=== PATIENT | female | born 1970 | race Caucasian/White ===

== ENCOUNTER 2020-03-04 11:46 | Inpatient (IN) | payer SELFPAY ==
[2020-03-04] VITALS (10 sets, daily range): BP systolic 108–157; BP diastolic 66–95; PULSE 79–98; RESP 18–24; TEMP 37.4–39.2; O2SAT 90–100; BMI 29.2
--- NOTE | 2020-03-04 12:34 | CT_ITS ---
WS: [id number] CT ABDOMEN AND PELVIS WITH CONTRAST HISTORY: abd pain, nausea and vomiting for 4 days. Prior appendectomy. TECHNIQUE: Imaging performed of the abdomen and pelvis with IV contrast. Single phase imaging of the abdomen. Coronal and sagittal reformats are submitted. All CT scans at [facility] use at least one of these dose optimization techniques: automated exposure control; mA and/or kV adjustment per patient size (includes targeted exams where dose is matched to clinical indication); or iterativ e reconstruction. IV CONTRAST: Omnipaque 300; 95 mL IV. Oral contrast: No DLP: 1370.78 mGy.cm COMPARISON: None available. Lower thorax: Lung bases are clear. Mildly enlarged cardiac chambers. No pericardial effusion. No hia henok hernia. Liver/biliary system: Mild hepatomegaly without significant hepatic steatosis. Gallbladder: Normal. No gallstones or wall thickening. No pericholecystic fluid. Pancreas: Normal. Spleen: Normal. Adrenal glands: Negative RIGHT adrenal gland. Enhancing nodule measures 13 mm associated with the LEF T adrenal gland. Right kidney: RIGHT kidney is mildly enlarged with multifocal areas of decreased enhancement and low attenuation. There is abnormal enhancement in the upper pole in the lower pole with adjacent perineph mukul stranding. There is mild dilatation of the renal pelvis with enhancement. No dilatation of the ca lyces. Also noted is a 2.1 cm cyst in the mid kidney. Mild RIGHT periureteral stranding. Left kidney: Small cortical cysts. No obstruction. Aorta: Mild atherosclerosis with no aneurysm. Lymphadenopathy: None. Free fluid: None. GI tract: There is moderate wall thickening in the ascending colon. There is a a stricture involving the ascending colon to the hepatic flexure. Long segment area of diffuse wall thickening and hyperemi a with narrowing of the lumen. There is pericolonic inflammation. Abdominal wall: Unremarkable abdominal wall. No hernia. Pelvis: Midline uterus. No free fluid or adnexal mass. Bones: Grade 1 anterolisthesis of L5 with bilateral L5 pars defects. CT/CT abdomen pelvis w con* [id number] IMPRESSION: 1. Abnormal ascending colon with circumferential wall thickening or pericoloni c stranding. There is significant change in caliber. Differential includes foca l colitis or neoplasm. Colonic changes may be secondary to the RIGHT renal absc esses. Strongly recommend colonoscopy after acute episode resolves. 2. Abnormal enhancement of the RIGHT kidney consistent with multifocal renal n ephritis and developing abscesses. 3. Indeterminate LEFT adrenal mass. Notified Bharat Kiser DO at 03/04/2020 1:37 PM.
[2020-03-04] MEDS: sodium chloride 0.9% 1,000 ML 999 ML IV (12:52)
[2020-03-04] MEDS: ondansetron 2 mg/ML SDV 2 mL 4 MG IVP (12:53)
[2020-03-04] MEDS: morphine 4 mg/mL SDV 1 mL IVP ×2 (12:53→14:21)
[2020-03-04 12:56] LABS: Add Urine Microscopic? YES; Bilirubin Urine Neg (Negative); Blood Urine 2+ (Negative); Glucose Urine UA Norm (Normal); Ketones Urine Negative (Negative); Leukocyte Esterase Urine 2+ (Negative); Nitrate Urine Negative (Negative); Protein Urine Neg (Negative); Specific Gravity, Urine 1.015 (1.005-1.030); Urine Appearance Clear (CLEAR); Urine Color Yellow (Yellow); Urobilinogen Urine 1 mg/dL (Negative); pH Urine 8.5 (5-7)
[2020-03-04 13:01] LABS: Add Urine Culture? Yes; Bacteria Urine 1+ /hpf; RBC Urine 15-25 /hpf (0-2); Squamous Epithelial Cell Urine 0-4 /hpf (0-5); WBC Urine 80-100 /hpf (0-5)
[2020-03-04 13:08] LABS: Basophils % 0.2 %; Eosinophils % 0.1 %; Hematocrit 47.5 % (37.0-47.0); Hemoglobin 15.6 g/dL (11.5-15.3); Lymphocytes # 1.4 10^3/uL (0.8-4.8); Lymphocytes % 10.4 %; Mean Corpuscular HGB Conc 32.8 g/dL (30.0-36.0); Mean Corpuscular Volume 97.5 fL (81-99); Mean Platelet Volume 11.1 fL (7.4-10.4); Monocytes # 1.4 10^3/uL (0.2-0.9); Monocytes % 9.9 %; Neutrophils # 10.86 10^3/uL (1.8-7.7); Nucleated Red Blood Cells % 0 %; Platelet Count 259 10^3/cmm (130-400); Red Blood Count 4.87 10^6/uL (4.1-5.3); Red Cell Distribution Width 12.8 % (12.1-15.1); White Blood Count 13.8 10^3/uL (4.0-10.0)
[2020-03-04 13:10] LABS: HCG, Serum Qual Negative (Negative)
[2020-03-04 13:15] LABS: Alanine Aminotransferase 88 U/L (0-33); Albumin Level 3.8 g/dL (3.5-5.2); Alkaline Phosphatase 111 IU/L (35-105); Anion Gap 17.1 (5-19); Aspartate Amino Transferase 66 U/L (0-32); Blood Urea Nitrogen 10 mg/dL (6-20); Calcium 9.4 mg/dL (8.5-10.5); Carbon Dioxide 22 mmol/L (22-29); Chloride 101 mmol/L (98-107); Globulin 4.2 g/dL (1.3-4.6); Glomerular Filtration Rate 89.7 mL/min (90-130); Glucose 111 mg/dL (65-115); Lipase 9 U/L (13-60); Osmolality Calculated 282 mOsm/kg (285-295); Potassium 4.1 mmol/L (3.5-5.1); Sodium 136 mmol/L (136-145); Total Bilirubin 1.2 mg/dL (0.15-1.2)
--- NOTE | 2020-03-04 13:34 | W.ED.ABDPA2 ---
HPI - Abdominal Pain General: Chief Complaint: Abdominal Pain Stated Complaint: ABDOMEN PAIN Time Seen by Provider: 03/04/20 12:25 History of Present Illness: HPI narrative: 49-year-old female started having abdominal pain 2 days ago has a temp of 102.6. She has had diarrhea as well and some small amount of vaginal bleeding she denies dysuria urgency or frequency no cough or difficulty with breathing. She has had significant no diarrhea is also been very loose stools no hematochezia or melena. MD elicited complaint: flank pain Pertinent past history: myocardial infarction Onset (ago): day(s) (4) Pain Consistency: constant Location: R flank Quality: cramping Radiation: suprapubic Migration to: no migration Exacerbating factors: movement Relieving factors: rest Associated Symptoms: Reports anorexia, bloating, change in bowel habits, change in stool character, GI cramping, diarrhea, dysuria, fever(s) and nausea; Denies belching, chills, coffee ground emesis, constipation, dyspepsia, excessive flatus, heartburn, hematochezia, hematuria, hematemesis, fecal incontinence, loose stools, melena, poor appetite, syncope and vomiting Related Data: Date of Last Menstrual Period: 08/12/19 Review of Systems Const: Reports: fever(s); Denies: chills ENMT: Denies: throat pain, ear or mastoid pain, nasal discharge or nasal congestion Card: Denies: syncope Resp: Denies: dyspnea, productive cough or non-productive cough GI: Reports: nausea, diarrhea, bloating, GI cramping, change in bowel habits and change in stool character; Denies: vomiting, hematemesis, coffee ground emesis, heartburn, constipation, belching, excessive flatus, fecal incontinence, hematochezia or melena : Reports: dysuria; Denies: hematuria Skin/Breast: Denies: rash or pruritus PFSH ED PFSH: Medical History Coronary artery disease Surgical History History of appendectomy 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 Female Reproductive History: Date of last menstrual period: 08/12/19 Physical Exam Const: COMMON NORMALS: no acute distress GENERAL APPEARANCE: cooperative and comfortable ORIENTATION/CONSCIOUSNESS: Yes awake, Yes oriented to person, Yes oriented to place and Yes oriented to time HENMT: COMMON NORMALS: normocephalic, atraumatic, hearing grossly normal bilaterally, external ears normal, EAC's normal, TM's normal bilaterally, Normal nasal mucous membranes and turbinates present, moist oral mucous membranes and oropharynx normal HEAD & SCALP: normocephalic and atraumatic NOSE: Normal nasal mucous membranes and turbinates present EXTERNAL EAR: Yes external ears normal EXTERNAL AUDITORY CANAL: EAC's normal TYMPANIC MEMBRANE: TM's normal bilaterally Eye: COMMON NORMALS: Equal, round and reactive pupils present, EOMs intact bilaterally, conjunctivae normal and no scleral icterus CONJUNCTIVA: Yes conjunctivae normal PUPIL: Yes Equal, round and reactive pupils present Neck/C-Spine: COMMON NORMALS: no JVD Resp: COMMON NORMALS: normal respiratory effort, No retractions, No use of accessory muscles and clear to auscultation bilaterally AUSCULTATION: clear to auscultation bilaterally Cardio: COMMON NORMALS: no JVD, regular rate, regular rhythm and No murmurs present (Cardio) RATE: regular rate RHYTHM: regular rhythm GI: COMMON NORMALS: Soft to palpation and No hepatosplenomegaly present AUSCULTATION: Yes normoactive bowel sounds PALPATION: Yes Soft to palpation, No Tenderness to palpation present (GI), No Guarding due to palpation present (GI) and Yes No hepatosplenomegaly present : BLADDER/KIDNEY EXAM: Yes CVA tenderness Back/Pelvis: GENERAL BACK: Yes CVA tenderness CVA tenderness: right Extremity: COMMON NORMALS: normal to inspection, capillary refill normal, no clubbing, cyanosis or edema, no calf tenderness and no pedal edema Neuro: SENSORIUM/ORIENTATION: Yes oriented to person, Yes oriented to place and Yes oriented to time Skin: COMMON NORMALS: no rashes or lesions noted GENERAL SKIN EXAM: no rashes or lesions noted Course Vital Signs: Vital signs: Vital Signs Temperature 97.7 F 03/08/20 07:45 Pulse Rate 57 L 03/08/20 07:45 Respiratory Rate 18 03/08/20 07:45 Blood Pressure 148/79 03/08/20 07:45 Pulse Oximetry 97 03/08/20 07:45 MDM - Abdominal Pain MDM Narrative: Medical decision making narrative: Patient has pyelonephritis with potential developing renal abscess. Reviewed CT findings with the radiologist. They make note that the colitis changes may be secondary to the right renal abscesses. Discussed with Dr. Chowdhury he did not feel the colon was direct related to the pyelonephritis he will discuss with hospitalist. Patient will need colonoscopy at a later date. Discussed Dr. Pierce will admit started IV antibiotic Lab Data: Labs: Lab Results 03/04/20 03/04/20 03/04/20 Range/Units 12:20 12:41 12:41 WBC 13.8 H (4.0-10.0) 10^3/ uL RBC 4.87 (4.1-5.3) 10^6/u L Hgb 15.6 H (11.5-15.3) g/dL Hct 47.5 H (37.0-47.0) % MCV 97.5 (81-99) fL MCH 32.0 (28.0-34.0) pg MCHC 32.8 (30.0-36.0) g/dL RDW 12.8 (12.1-15.1) % Plt Count 259 (130-400) 10^3/c mm MPV 11.1 H (7.4-10.4) fL Neut % (Auto) 79.0 % Lymph % (Auto) 10.4 % Deuel % (Auto) 9.9 % Eos % (Auto) 0.1 % Baso % (Auto) 0.2 % Neut # (Auto) 10.86 H (1.8-7.7) 10^3/u L Lymph # (Auto) 1.4 (0.8-4.8) 10^3/u L Deuel # (Auto) 1.4 H (0.2-0.9) 10^3/u L Eos # (Auto) 0.0 (0.0-0.8) 10^3/u L Baso # (Auto) 0.0 (0.0-0.1) 10^3/u L Nucleated RBC % (a uto) 0 % Nucleated RBCs # 0.0 /100WBC Sodium 136 (136-145) mmol/L Potassium 4.1 (3.5-5.1) mmol/L Chloride 101 (98-107) mmol/L Carbon Dioxide 22 (22-29) mmol/L Anion Gap 17.1 (5-19) BUN 10 (6-20) mg/dL Creatinine 0.7 (0.5-0.9) mg/dL GFR Calculation 89.7 L (90-130) mL/min Glucose 111 (65-115) mg/dL Calculated Osmolal ity 282 L (285-295) mOsm/k g Calcium 9.4 (8.5-10.5) mg/dL Total Bilirubin 1.2 (0.15-1.2) mg/dL AST 66 H (0-32) U/L ALT 88 H (0-33) U/L Alkaline Phosphata se 111 H (35-105) IU/L Total Protein 8.0 (6.6-8.7) g/dL Albumin 3.8 (3.5-5.2) g/dL Globulin 4.2 (1.3-4.6) g/dL Lipase 9 L (13-60) U/L HCG, Qual (Negative) Urine Color Yellow (Yellow) Urine Appearance Clear (CLEAR) Urine pH 8.5 H (5-7) Ur Specific Gravit y 1.015 (1.005-1.030) Urine Protein Neg (Negative) Urine Glucose (UA) Norm (Normal) Urine Ketones Negative (Negative) Urine Blood 2+ H (Negative) Urine Nitrate Negative (Negative) Urine Bilirubin Neg (Negative) Urine Urobilinogen 1 H (Negative) mg/dL Ur Leukocyte Earline ase 2+ H (Negative) Urine RBC 15-25 H (0-2) /hpf Urine WBC 80-100 H (0-5) /hpf Ur Squamous Epith Cells 0-4 H (0-5) /hpf Amorphous Sediment Not Reportable Urine Bacteria 1+ H (NONE) /hpf 03/04/20 Range/Units 12:41 WBC (4.0-10.0) 10^3/ uL RBC (4.1-5.3) 10^6/u L Hgb (11.5-15.3) g/dL Hct (37.0-47.0) % MCV (81-99) fL MCH (28.0-34.0) pg MCHC (30.0-36.0) g/dL RDW (12.1-15.1) % Plt Count (130-400) 10^3/c mm MPV (7.4-10.4) fL Neut % (Auto) % Lymph % (Auto) % Deuel % (Auto) % Eos % (Auto) % Baso % (Auto) % Neut # (Auto) (1.8-7.7) 10^3/u L Lymph # (Auto) (0.8-4.8) 10^3/u L Deuel # (Auto) (0.2-0.9) 10^3/u L Eos # (Auto) (0.0-0.8) 10^3/u L Baso # (Auto) (0.0-0.1) 10^3/u L Nucleated RBC % (a uto) % Nucleated RBCs # /100WBC Sodium (136-145) mmol/L Potassium (3.5-5.1) mmol/L Chloride (98-107) mmol/L Carbon Dioxide (22-29) mmol/L Anion Gap (5-19) BUN (6-20) mg/dL Creatinine (0.5-0.9) mg/dL GFR Calculation (90-130) mL/min Glucose (65-115) mg/dL Calculated Osmolal ity (285-295) mOsm/k g Calcium (8.5-10.5) mg/dL Total Bilirubin (0.15-1.2) mg/dL AST (0-32) U/L ALT (0-33) U/L Alkaline Phosphata se (35-105) IU/L Total Protein (6.6-8.7) g/dL Albumin (3.5-5.2) g/dL Globulin (1.3-4.6) g/dL Lipase (13-60) U/L HCG, Qual Negative (Negative) Urine Color (Yellow) Urine Appearance (CLEAR) Urine pH (5-7) Ur Specific Gravit y (1.005-1.030) Urine Protein (Negative) Urine Glucose (UA) (Normal) Urine Ketones (Negative) Urine Blood (Negative) Urine Nitrate (Negative) Urine Bilirubin (Negative) Urine Urobilinogen (Negative) mg/dL Ur Leukocyte Earline ase (Negative) Urine RBC (0-2) /hpf Urine WBC (0-5) /hpf Ur Squamous Epith Cells (0-5) /hpf Amorphous Sediment Urine Bacteria (NONE) /hpf Discharge Plan Discharge Patient Disposition: Admitted As Inpatient Admit Provider: Issa Galaviz Clinical Impression: Pyelonephritis of right kidney, Adrenal mass, Colitis, Sepsis Condition: Stable Discharge Date/Time: 03/04/20 15:40 Coding Level of Care Code ED Light Equipment Operator for Chg Fwd Exam Comprehensive
[2020-03-04] MEDS: cefTRIAXone 2,000 MG in sodium chloride 0.9% (plus) 50 ML 100 MG IV (14:22)
[2020-03-04] MEDS: D5-NS 0.45% + KCL 20 mEq 20 MEQ/1,000 ML BAG 100 MEQ IV (16:16)
--- NOTE | 2020-03-04 18:16 | PM.HP ---
Providers/Chief Complaint Admitting Physician: Issa Galaviz Primary Care Provider: Dung Aldana DO Chief Complaint: ABDOMEN PAIN History of Present Illness Samantha Austin is a 49 year old female with past medical history of coronary artery disease and stent placement about a year ago who is presenting to emergency room with complaints of right flank pain with radiation to her suprapubic area. The symptoms started several days ago. Initially not so severe but progressively got worse. Today it is described as very severe. The pain is acute constant. Denies any modifying factors. Reports dysuria and urinary frequency. The urine is cloudy. Denies hematuria. Reports loose stools but no diarrhea. Denies rectal blood. The patient denies nausea or vomiting. Reports fever and chills. The patient reports that she does not take any medications for her coronary artery disease because she cannot afford them. She does not have medical insurance. She does not have a primary care physician. However she denies any chest pain, palpitations, shortness of breath, dizziness or lightheadedness, peripheral swelling. The patient also reports hypertension and dyslipidemia. Again she does not take any medications for this problems. The patient is active smoker. She also smokes marijuana. Denies alcohol and other recreational drugs. Review of Systems General: Reports: 10 or more systems reviewed and unremarkable except in HPI and below Medications/Allergies Home Medications Medication Instructions Recorded Confirmed Last Taken Type Aleve 1 - 2 tab PO Q6H PRN 03/04/20 03/04/20 Unknown History acetaminophen [Tylenol] 325 mg PO QID PRN 03/04/20 03/04/20 03/04/20 History Allergies Allergy/AdvReac Type Severity Reaction Status Date / Time Latex, Natural Rubber Allergy ALGY-Bliste Verified 03/04/20 15:56 r PFSH Acute PFSH: Medical History (Updated 03/04/20 @ 13:50 by Bharat Kiser DO) Coronary artery disease Surgical History (Updated 03/04/20 @ 13:50 by Bharat Kiser DO) History of appendectomy 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 Moderate to severe distress secondary to the pain. Responses are adequate. Skin is warm and dry. Moist extremities. Neck supple. No JVD Lungs clear bilaterally. Heart S1, S2, regular Abdomen is soft, obese, tender in the right flank and suprapubic area. No rebound. Bowel sounds are present. No guarding. Extremities no edema cyanosis or calf tenderness bilaterally Neuro examination is nonfocal. Normal speech. Eyes Kaitlin. Extraocular muscles are intact. Data : 03/04/20 12:41 03/04/20 12:41 Micro: Microbiology 03/04/20 14:05 Blood Culture - Preliminary Blood SPECIMEN COLLECTED 03/04/20 14:00 Blood Culture - Preliminary Blood SPECIMEN COLLECTED A&P Additional A&P Information 49-year-old female with past medical history of coronary artery disease/stent about a year ago who is presenting with right flank pain, fever and chills. Sepsis secondary to urinary tract infection. Vital signs are currently stable. Right-sided pyelonephritis and kidney abscess. Dr. Tariq, ED physician discussed the findings of CT with Dr. Chowdhury, our urologist. They reviewed the pictures together. For now management with antibiotics and fluids is recommended according to Dr. Tariq. Dr. Chowdhury also felt that there is no direct connection between findings in the kidney and colon. He recommended separate evaluation of colon thickening. We will continue IV fluids, Zosyn, pain medications. Will monitor CBC and chemistry panel. Will wait for the urine and blood culture results. Colon wall thickening. Differential includes inflammation, infection, possible GI tumor. We will closely monitor patient's symptoms. Will consider stool testing if develops diarrhea. The patient will require colonoscopy after stabilization and treatment of her current infection for diagnostic reasons. This was discussed in length with the patient. She verbalized understanding and agreement. Left adrenal mass. This is accidentally found on the CT. The patient is informed. Will require outpatient follow-up and additional testing for long-term monitoring. She verbalized understanding and agreement. Elevated LFTs. I suspect this is secondary to sepsis. Will monitor. DVT prophylaxis. Will order Lovenox. History of coronary artery disease. We will start her on aspirin. Will monitor vital signs. Will consider beta-heriberto. Not ordering statin due to elevated LFTs. The patient was counseled about tobacco abuse. She agrees to quit smoking. Will require outpatient follow-up with PCP and a claims representative. The patient wants to be full code. Attestations Medical Necessity Statement*: The plan of care requires IV medications and fluids. I expect that the patient will spend more than 2 midnights in the hospital. Coding Level of Care Code Acute Java Integration Developer for Mikaela Fisher
[2020-03-04] MEDS: HYDROcodone-acetaminophen 5-325 mg Tablet 1 TAB PO (18:36)
[2020-03-04] MEDS: enoxaparin 40 mg/0.4 mL Syringe SUBCUT (18:37)
[2020-03-04] MEDS: piperacillin-tazobactam 3.375 GM in sodium chloride 0.9% (plus) 50 ML IV (18:38)
[2020-03-04] MEDS: lactated ringers 1,000 ML 125 ML IV (18:43)
--- NOTE | 2020-03-04 19:29 | PM.CONSULT ---
Providers/Reason For Consult Consulting Physican/Specialty*: Urology/Chowdhury Reason for Consult*: Right pyelonephritis Attending Physician: Issa Galaviz Primary Care Provider: Dung Aldana DO History of Present Illness History of Present Illness Samantha Austin is a 49 year old female who I evaluated for the first time tonight at the request of the ER and hospitalist service. Admitted through the emergency department for complaints of 2 days of symptoms suspicious for PYELONEPHRITIS including right flank pain, fever up to 102+. She also had some diarrhea but no significant lower urinary tract symptoms. Does have a history of stones but no stone passage recently gross hematuria or clear-cut renal colicky symptoms. Denies a history of frequent urinary tract infections. Work-up: CT scan showing evidence of right pyelonephritis decreased medullary perfusion possible early abscess. No evidence of perirenal abscess. No evidence of hydronephrosis or obstruction There is also some changes in the right colon suspicious for GI source. Etiology unclear. Further work-up recommendation White count was elevated at 13.8 hemoglobin was 15.6 creatinine was 0.7. Urinalysis 80-100 white cells, 15-25 RBCs, nitrite negative, 1+ bacteria Recommendations: I do not think she needs any surgical intervention at this time. Would recommend full course of antibiotics with culture adjustments as needed. Agree that the right colon appears to be grossly abnormal and needs further evaluation. Review of Systems Const: Reports: fever(s), chills and body aches Eyes: Denies: change in vision Card: Denies: chest pain or palpitations Resp: Denies: dyspnea or productive cough GI: Reports: abdominal pain : Reports: flank pain Musc: Reports: back pain Skin/Breast: Denies: rash or pruritus Neuro: Denies: confusion, Slurred speech present or seizure-like activity Psych: Reports: anxiety Endo: Denies: polydipsia Jg/Lymph: Denies: easy bruising All/Imm: Denies: urticaria Meds/Allergies Home Medications and Allergies Home Medications Medication Instructions Recorded Confirmed Last Taken Type Aleve 1 - 2 tab PO Q6H PRN 03/04/20 03/04/20 Unknown History acetaminophen [Tylenol] 325 mg PO QID PRN 03/04/20 03/04/20 03/04/20 History Allergies Allergy/AdvReac Type Severity Reaction Status Date / Time Latex, Natural Rubber Allergy ALGCandace-Jamese Verified 03/04/20 15:56 r Current Medications Current Medications Generic Name Dose Route Start Last Admin Trade Name Freq PRN Reason Stop Dose Admin Hydrocodone Bitart/Acetaminophen 1 tab 03/04/20 18:09 03/04/20 18:36 Jasper 5-325 Mg PO 1 tab Q4H PRN Administration MODERATE TO SEVERE PAIN Enoxaparin Sodium 40 mg 03/04/20 19:00 03/04/20 18:37 Lovenox SUBCUT 40 mg Q24H ANDREW Administration Lactated Ringer's 1,000 mls @ 125 mls/hr 03/04/20 18:15 03/04/20 18:43 Lactated Ringers IV 125 mls/hr .Q8H ANDREW Administration Piperacillin Sod/Tazobactam 50 mls @ 12.5 mls/hr 03/04/20 19:00 03/04/20 18:38 Sod 3.375 gm/ Sodium Chloride IV 12.5 mls/hr Q8H ANDREW Administration Protocol PFSH Acute PFSH: Medical History Coronary artery disease Surgical History History of appendectomy 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 Female Reproductive History: Date of last menstrual period: 08/12/19 Vitals/I&O/Wt Last Vital Signs Temp 99.4 F 03/04/20 16:00 Pulse 89 03/04/20 16:00 Resp 20 H 03/04/20 16:00 BP 116/70 03/04/20 16:00 Pulse Ox 96 03/04/20 16:00 03/04/20 03/04/20 03/04/20 06:59 14:59 22:59 Intake Total 1050 / 1050 Output Total 200 / 200 Balance 850 / 850 Weight last 48 hrs Weight 170 lb Physical Exam Const: COMMON NORMALS: no acute distress, alert and well nourished GENERAL APPEARANCE: well kempt and well developed ORIENTATION/CONSCIOUSNESS: not confused HENMT: COMMON NORMALS: normocephalic and atraumatic HEAD & SCALP: normocephalic and atraumatic Eye: COMMON NORMALS: conjunctivae normal and no scleral icterus CONJUNCTIVA: Yes conjunctivae normal Neck/C-Spine: COMMON NORMALS: full ROM Resp: COMMON NORMALS: normal respiratory effort EFFORT & INSPECTION: No labored and No Actively coughing Neuro: SENSORIUM/ORIENTATION: Yes alert Psych: COMMON NORMALS: mental status grossly normal APPEARANCE: Yes grossly normal and Yes well kempt ATTITUDE: Yes calm and Yes engaged Skin: COMMON NORMALS: no rashes or lesions noted GENERAL SKIN EXAM: no rashes or lesions noted Data Micro: Micro: Microbiology 03/04/20 14:05 Blood Culture - Pr eliminary Blood SPECIMEN [facility] 03/04/20 14:00 Blood Culture - Pr eliminary Blood SPECIMEN [facility] A&P Assessment and plan (1) Pyelonephritis of right kidney: Possibly some early abscess formation but no clear consolidation. No evidence of hydronephrosis or stones. No reason for surgical intervention at this point. Would recommend antibiotic therapy alone at this point. Does also have a simple cyst in her kidney but they do not appear to be infected. Status: Acute (2) Diarrhea: Status: Acute Qualifiers: Diarrhea type: unspecified type Qualified Code(s): R19.7 - Diarrhea, unspecified Coding Level of Care Code Acute Purchasing Administrator for [facility] Diagnoses Pyelonephritis of right kidney N12 Diarrhea R19.7 Diarrhea type: unspecified type
[2020-03-05] VITALS (10 sets, daily range): BP systolic 118–192; BP diastolic 69–82; PULSE 72–81; RESP 18–20; TEMP 36.8–37.2; O2SAT 92–100
[2020-03-05] MEDS: morphine 4 mg/mL SDV 1 mL 2 MG IVP ×2 (00:53→18:29)
[2020-03-05] MEDS: piperacillin-tazobactam 3.375 GM in sodium chloride 0.9% (plus) 50 ML IV ×3 (02:12→18:26)
[2020-03-05 04:29] LABS: Basophils # 0.1 10^3/uL (0.0-0.1); Basophils % 0.5 %; Eosinophils # 0.1 10^3/uL (0.0-0.8); Hematocrit 41.1 % (37.0-47.0); Hemoglobin 13.4 g/dL (11.5-15.3); Lymphocytes # 2.1 10^3/uL (0.8-4.8); Lymphocytes % 19.3 %; Mean Corpuscular HGB Conc 32.6 g/dL (30.0-36.0); Mean Corpuscular Hemoglobin 32.3 pg (28.0-34.0); Mean Platelet Volume 11.1 fL (7.4-10.4); Monocytes # 1.5 10^3/uL (0.2-0.9); Monocytes % 13.8 %; Neutrophils # 6.93 10^3/uL (1.8-7.7); Neutrophils % 65.2 %; Nucleated Red Blood Cells % 0 %; Platelet Count 225 10^3/cmm (130-400); Red Blood Count 4.15 10^6/uL (4.1-5.3); Red Cell Distribution Width 12.9 % (12.1-15.1); White Blood Count 10.6 10^3/uL (4.0-10.0)
[2020-03-05 04:54] LABS: Chloride 102 mmol/L (98-107); Potassium 3.9 mmol/L (3.5-5.1)
[2020-03-05 05:22] LABS: Alanine Aminotransferase 66 U/L (0-33); Aspartate Amino Transferase 46 U/L (0-32); Blood Urea Nitrogen 10 mg/dL (6-20); Calcium 8.2 mg/dL (8.5-10.5); Carbon Dioxide 23 mmol/L (22-29); Glomerular Filtration Rate 89.7 mL/min (90-130); Glucose 104 mg/dL (65-115); Total Bilirubin 0.9 mg/dL (0.15-1.2); Total Protein 6.8 g/dL (6.6-8.7)
[2020-03-05 05:28] LABS: Albumin Level 3.1 g/dL (3.5-5.2); Alkaline Phosphatase 137 IU/L (35-105); Anion Gap 12.9 (5-19); Globulin 3.7 g/dL (1.3-4.6); Osmolality Calculated 277 mOsm/kg (285-295); Sodium 134 mmol/L (136-145)
[2020-03-05] MEDS: acetaminophen 325 mg Tablet 650 MG PO ×2 (09:06→15:16)
[2020-03-05] MEDS: sodium chlor 0.9% + KCl 20 mEq 20 MEQ/1,000 ML BAG 75 MEQ IV ×2 (09:07→22:49)
[2020-03-05] MEDS: aspirin 81 mg EC Tablet PO (09:07)
--- NOTE | 2020-03-05 13:06 | PM.PN ---
Subjective Subjective: Interval history: the patient reports feeling better today. Denies uncontrolled pain. Denies nausea or vomiting. No fevers or chills. No chest pain, shortness of breath, cough, palpitations. No diarrhea. Medications: Reviewed: Yes Medication Review Details: Generic Name Dose Route Start Last Admin Trade Name Freq PRN Reason Stop Dose Admin Acetaminophen 650 mg 03/04/20 18:09 03/05/20 09:06 Tylenol PO 650 mg Q6H PRN Administration Mild/Mod Pain Or Temp >/= 101 Hydrocodone Bitart /Acetaminophen 1 tab 03/04/20 18:09 03/04/20 18:36 [place] 5-325 Mg PO 1 tab Q4H PRN Administration MODERATE TO SEVER E PAIN Aspirin 81 mg 03/05/20 09:00 03/05/20 09:07 Aspirin Ec PO 81 mg DAILY ANDREW Administration Enoxaparin Sodium 40 mg 03/04/20 19:00 03/04/20 18:37 Lovenox SUBCUT 40 mg Q24H ANDREW Administration Piperacillin Sod/T azobactam 50 mls @ 12.5 mls /hr 03/04/20 19:00 03/05/20 11:13 Sod 3.375 gm/ So dium Chloride IV 12.5 mls/hr Q8H ANDREW Administration Protocol Potassium Chloride /Sodium Chloride 20 meq in 1,000 m ls @ 75 mls/hr 03/05/20 08:00 03/05/20 09:07 Sodium Chlor 0.9 % + Kcl 20 Meq IV 75 mls/hr .[id number] ANDRWE Administration Morphine Sulfate 2 mg 03/04/20 18:09 03/05/20 00:53 Morphine IVP 2 mg Q4H PRN Administration SEVERE PAIN Vitals/I&O/Wt Last Vital Signs Temp 98.6 F 03/05/20 11:16 Pulse 73 03/05/20 11:16 Resp 18 03/05/20 11:16 BP 126/72 03/05/20 11:16 Pulse Ox 100 03/05/20 11:16 03/04/20 03/05/20 03/05/20 22:59 06:59 14:59 Intake Total 1100 / 1100 300 / 1400 480 / 480 Output Total 200 / 200 Balance 900 / 900 300 / 1200 480 / 480 Weight last 48 hrs Weight 77.111 kg Physical Exam Narrative: EXAM NARRATIVE: The patient is awake alert and oriented. no acute distress. Responses are adequate. Skin is warm and dry. Moist extremities. Neck supple. No JVD Lungs clear bilaterally. Heart S1, S2, regular Abdomen is soft, obese, tender in the right flank and suprapubic area. No rebound. Bowel sounds are present. No guarding. Extremities no edema cyanosis or calf tenderness bilaterally Neuro examination is nonfocal. Normal speech. Eyes Kaitlin. Extraocular muscles are intact. Data : 03/05/20 04:00 03/05/20 04:00 Micro: Microbiology 03/04/20 12:20 Urine Culture - Preliminary Urine,Clean Catch Gram Negative Rods 03/04/20 14:05 Blood Culture - Preliminary Blood SPECIMEN COLLECTED 03/04/20 14:00 Blood Culture - Preliminary Blood SPECIMEN COLLECTED A&P Assessment and plan (1) Pyelonephritis of right kidney: Status: Acute (2) Diarrhea: Status: Acute Qualifiers: Diarrhea type: unspecified type Qualified Code(s): R19.7 - Diarrhea, unspecified (3) Colon wall thickening: Status: Acute (4) Adrenal mass: Status: Acute Additional A&P Information 49-year-old female with past medical history of coronary artery disease/stent about a year ago who is presenting with right flank pain, fever and chills. Sepsis secondary to urinary tract infection. resolved. Continue monitoring. Right-sided pyelonephritis and kidney abscess. appreciate Dr. Chowdhury's input. Continuing antibiotics. Her symptoms are improving. Colon wall thickening. Differential includes inflammation, infection, possible GI tumor. We will closely monitor patient's symptoms. Will consider stool testing if develops diarrhea. The patient will require colonoscopy after stabilization and treatment of her current infection for diagnostic reasons. This was discussed in length with the patient. She verbalized understanding and agreement. Left adrenal mass. This is accidentally found on the CT. The patient is informed. Will require outpatient follow-up and additional testing for long-term monitoring. She verbalized understanding and agreement. Elevated LFTs. I suspect this is secondary to sepsis. Will monitor. DVT prophylaxis. Will order Lovenox. History of coronary artery disease. aspirin. Not ordering statin due to elevated LFTs. The patient was counseled about tobacco abuse. She agrees to quit smoking. Will require outpatient follow-up with PCP and a court administrator. full code. The plan of care was discussed with the patient. She verbalized consent and agreement. Attestations Medical Necessity Statement*: please see assessment and plan. The patient requires IV antibiotics. Coding Level of Care Code Acute Steam Blocker for [facility] Diagnoses Pyelonephritis of right kidney N12 Diarrhea R19.7 Diarrhea type: unspecified type Colon wall thickening K63.9 Adrenal mass E27.8
[2020-03-05] MEDS: enoxaparin 40 mg/0.4 mL Syringe SUBCUT (18:26)
[2020-03-05] MEDS: HYDROcodone-acetaminophen 5-325 mg Tablet 1 TAB PO (20:38)
[2020-03-05] MEDS: nicotine 21 mg Patch 1 PATCH TRANSDERMA (20:38)
[2020-03-06] VITALS (7 sets, daily range): BP systolic 112–143; BP diastolic 74–87; PULSE 71–84; RESP 16–22; TEMP 36.6–37.6; O2SAT 94–98
[2020-03-06] MEDS: morphine 4 mg/mL SDV 1 mL 2 MG IVP (01:17)
[2020-03-06] MEDS: piperacillin-tazobactam 3.375 GM in sodium chloride 0.9% (plus) 50 ML IV ×3 (03:46→18:16)
[2020-03-06] MEDS: HYDROcodone-acetaminophen 5-325 mg Tablet 1 TAB PO ×2 (04:19→21:36)
[2020-03-06] MEDS: ondansetron 2 mg/ML SDV 2 mL 4 MG IVP (04:24)
[2020-03-06 05:38] LABS: Basophils % 0.4 %; Eosinophils # 0.2 10^3/uL (0.0-0.8); Eosinophils % 2.4 %; Hematocrit 39.1 % (37.0-47.0); Hemoglobin 12.6 g/dL (11.5-15.3); Lymphocytes # 1.7 10^3/uL (0.8-4.8); Lymphocytes % 20.8 %; Mean Corpuscular HGB Conc 32.2 g/dL (30.0-36.0); Mean Corpuscular Hemoglobin 31.8 pg (28.0-34.0); Mean Corpuscular Volume 98.7 fL (81-99); Mean Platelet Volume 11.8 fL (7.4-10.4); Monocytes # 1.1 10^3/uL (0.2-0.9); Monocytes % 13.5 %; Neutrophils # 5.18 10^3/uL (1.8-7.7); Neutrophils % 62.5 %; Nucleated Red Blood Cells % 0 %; Platelet Count 256 10^3/cmm (130-400); Red Blood Count 3.96 10^6/uL (4.1-5.3); Red Cell Distribution Width 12.6 % (12.1-15.1); White Blood Count 8.3 10^3/uL (4.0-10.0)
[2020-03-06 05:59] LABS: Magnesium 1.9 mg/dL (1.7-2.3)
[2020-03-06 06:06] LABS: Albumin Level 3.1 g/dL (3.5-5.2); Anion Gap 16.5 (5-19); Blood Urea Nitrogen 9 mg/dL (6-20); Calcium 8.2 mg/dL (8.5-10.5); Carbon Dioxide 21 mmol/L (22-29); Chloride 106 mmol/L (98-107); Glomerular Filtration Rate 132.2 mL/min (90-130); Glucose 103 mg/dL (65-115); Phosphorus 3.2 mg/dL (2.5-4.5); Potassium 4.5 mmol/L (3.5-5.1); Sodium 139 mmol/L (136-145)
[2020-03-06] MEDS: aspirin 81 mg EC Tablet PO (08:35)
[2020-03-06] MEDS: nicotine 21 mg Patch 1 PATCH TRANSDERMA (08:35)
--- NOTE | 2020-03-06 11:19 | PM.PN ---
Subjective Subjective: Interval history: Reports fever last night. No chills. Denies uncontrolled pain. Denies nausea or vomiting. No fevers or chills. No chest pain, shortness of breath, cough, palpitations. No diarrhea. Medications: Medication Review Details: Generic Name Dose Route Start Last Admin Trade Name Freq PRN Reason Stop Dose Admin Acetaminophen 650 mg 03/04/20 18:09 03/05/20 15:16 Tylenol PO 650 mg Q6H PRN Administration Mild/Mod Pain Or Temp >/= 101 Hydrocodone Bitart /Acetaminophen 1 tab 03/04/20 18:09 03/06/20 04:19 [place] 5-325 Mg PO 1 tab Q4H PRN Administration MODERATE TO SEVER E PAIN Aspirin 81 mg 03/05/20 09:00 03/06/20 08:35 Aspirin Ec PO 81 mg DAILY ANDREW Administration Enoxaparin Sodium 40 mg 03/04/20 19:00 03/05/20 18:26 Lovenox SUBCUT 40 mg Q24H ANDREW Administration Piperacillin Sod/T azobactam 50 mls @ 12.5 mls /hr 03/04/20 19:00 03/06/20 11:04 Sod 3.375 gm/ So dium Chloride IV 12.5 mls/hr Q8H ANDREW Administration Protocol Morphine Sulfate 2 mg 03/04/20 18:09 03/06/20 01:17 Morphine IVP 2 mg Q4H PRN Administration SEVERE PAIN Nicotine 1 patch 03/05/20 21:00 03/06/20 08:35 Nicoderm 21 Mg P atch TRANSDERMA 1 patch DAILY ANDREW Administration Ondansetron HCl 4 mg 03/04/20 15:43 03/06/20 04:24 Zofran IVP 4 mg Q6H PRN Administration NAUSEA AND VOMITI NG Vitals/I&O/Wt Last Vital Signs Temp 97.8 F 03/06/20 07:45 Pulse 73 03/06/20 07:45 Resp 16 03/06/20 07:45 BP 134/87 03/06/20 07:45 Pulse Ox 97 03/06/20 07:45 03/05/20 03/06/20 03/06/20 22:59 06:59 14:59 Intake Total 1340 / 2060 410 / 410 Balance 1340 / 1910 410 / 410 Weight last 48 hrs Weight 77.111 kg Physical Exam Narrative: EXAM NARRATIVE: The patient is awake alert and oriented. no acute distress. Responses are adequate. Skin is warm and dry. Moist extremities. Neck supple. No JVD Lungs clear bilaterally. Heart S1, S2, regular Abdomen is soft, obese, tender in the right flank and suprapubic area. No rebound. Bowel sounds are present. No guarding. Extremities no edema cyanosis or calf tenderness bilaterally Neuro examination is nonfocal. Normal speech. Eyes Kaitlin. Extraocular muscles are intact. Data : 03/06/20 04:20 03/06/20 04:20 Micro: Microbiology 03/04/20 12:20 Urine Culture - Final Urine,Clean Catch Escherichia coli 03/04/20 14:05 Blood Culture - Preliminary Blood NEGATIVE TO DATE 03/04/20 14:00 Blood Culture - Preliminary Blood NEGATIVE TO DATE A&P Assessment and plan (1) Pyelonephritis of right kidney: Status: Acute (2) Diarrhea: Status: Acute Qualifiers: Diarrhea type: unspecified type Qualified Code(s): R19.7 - Diarrhea, unspecified (3) Colon wall thickening: Status: Acute (4) Adrenal mass: Status: Acute Additional A&P Information 49-year-old female with past medical history of coronary artery disease/stent about a year ago who is presenting with right flank pain, fever and chills. Sepsis secondary to urinary tract infection. resolved. Continue monitoring. Right-sided pyelonephritis and kidney abscess. appreciate Dr. Chowdhury's input. Continuing antibiotics. Her symptoms are improving. Leukocytosis is improving. However I am still concerned about her fever. She had one spike last night. Colon wall thickening. Differential includes inflammation, infection, possible GI tumor. We will closely monitor patient's symptoms. Will consider stool testing if develops diarrhea. The patient will require colonoscopy after stabilization and treatment of her current infection for diagnostic reasons. This was discussed in length with the patient. She verbalized understanding and agreement. Left adrenal mass. This is accidentally found on the CT. The patient is informed. Will require outpatient follow-up and additional testing for long-term monitoring. She verbalized understanding and agreement. Elevated LFTs. I suspect this is secondary to sepsis. Will monitor. DVT prophylaxis. Will order Lovenox. History of coronary artery disease. aspirin. Not ordering statin due to elevated LFTs. The patient was counseled about tobacco abuse. She agrees to quit smoking. Will require outpatient follow-up with PCP and a cabinetmaker supervisor. full code. The plan of care was discussed with the patient. She verbalized consent and agreement. Attestations Medical Necessity Statement*: Still requires IV antibiotics. Waiting for the culture results. Coding Level of Care Code Acute Dinkey Engineer for [facility] Fwd Diagnoses Pyelonephritis of right kidney N12 Diarrhea R19.7 Diarrhea type: unspecified type Colon wall thickening K63.9 Adrenal mass E27.8
--- NOTE | 2020-03-06 15:47 | P.PN_ITS ---
Subjective Subjective: Interval history: Urology follow-up Overall feels better today but still had a rough day yesterday and increased pain with low-grade fever last night. Has been afebrile ever since. Some nausea off and on. No evidence of septic concerns. Decreased appetite. Reviewed with her expectation of fairly slow turnaround on kidney infection. With white count decreased today Vitals/I&O/Wt Last Vital Signs Temp 98.1 F 03/06/20 15:44 Pulse 79 03/06/20 11:50 Resp 22 H 03/06/20 15:44 BP 130/74 03/06/20 15:44 Pulse Ox 96 03/06/20 15:44 03/06/20 03/06/20 03/06/20 06:59 14:59 22:59 Intake Total 650 / 650 Balance 650 / 650 Physical Exam Const: COMMON NORMALS: no acute distress, alert and well nourished GENERAL APPEARANCE: well kempt and well developed ORIENTATION/CONSCIOUSNESS: not confused HENMT: COMMON NORMALS: normocephalic HEAD & SCALP: normocephalic Resp: COMMON NORMALS: normal respiratory effort EFFORT & INSPECTION: No labored and No Actively coughing Neuro: SENSORIUM/ORIENTATION: Yes alert Psych: COMMON NORMALS: mental status grossly normal APPEARANCE: Yes grossly normal and Yes well kempt ATTITUDE: Yes calm and Yes engaged Skin: COMMON NORMALS: no rashes or lesions noted and no jaundice GENERAL SKIN EXAM: no rashes or lesions noted Data : 03/06/20 04:20 03/06/20 04:20 Micro: Microbiology 03/04/20 12:20 Urine Culture - Final Urine,Clean Catch Escherichia coli 03/04/20 14:05 Blood Culture - Preliminary Blood NEGATIVE TO DATE 03/04/20 14:00 Blood Culture - Preliminary Blood NEGATIVE TO DATE A&P Assessment and plan (1) Pyelonephritis of right kidney: Status: Acute Attestations Medical Necessity Statement*: See attending Coding Level of Care Code Acute Animal Control Officer for [facility] Diagnoses Pyelonephritis of right kidney N12
[2020-03-06] MEDS: enoxaparin 40 mg/0.4 mL Syringe SUBCUT (18:16)
--- NOTE | 2020-03-06 19:07 | PC.NURSE ---
Patient stated my right side hurts where kidneys are located. Patient's pain level 5 on numeric scale 0 - 10. Patient's nurse, Tootie been notified.
[2020-03-07] MEDS: piperacillin-tazobactam 3.375 GM in sodium chloride 0.9% (plus) 50 ML IV (03:10)
[2020-03-07 04:00] VITALS: BP 117/75; PULSE 74; RESP 20; TEMP 37.2; O2SAT 96
[2020-03-07 05:08] LABS: Basophils # 0.1 10^3/uL (0.0-0.1); Basophils % 0.7 %; Eosinophils # 0.2 10^3/uL (0.0-0.8); Hematocrit 42.7 % (37.0-47.0); Hemoglobin 13.9 g/dL (11.5-15.3); Lymphocytes # 2.7 10^3/uL (0.8-4.8); Lymphocytes % 38.5 %; Mean Corpuscular HGB Conc 32.6 g/dL (30.0-36.0); Mean Corpuscular Hemoglobin 31.8 pg (28.0-34.0); Mean Corpuscular Volume 97.7 fL (81-99); Mean Platelet Volume 10.8 fL (7.4-10.4); Monocytes # 0.7 10^3/uL (0.2-0.9); Monocytes % 10.2 %; Neutrophils # 3.34 10^3/uL (1.8-7.7); Neutrophils % 47.3 %; Nucleated Red Blood Cells % 0 %; Platelet Count 322 10^3/cmm (130-400); Red Blood Count 4.37 10^6/uL (4.1-5.3); Red Cell Distribution Width 12.6 % (12.1-15.1); White Blood Count 7.1 10^3/uL (4.0-10.0)
[2020-03-07 05:43] LABS: Alanine Aminotransferase 44 U/L (0-33); Albumin Level 3.2 g/dL (3.5-5.2); Alkaline Phosphatase 206 IU/L (35-105); Anion Gap 13.2 (5-19); Aspartate Amino Transferase 32 U/L (0-32); Blood Urea Nitrogen 9 mg/dL (6-20); Calcium 9.6 mg/dL (8.5-10.5); Carbon Dioxide 25 mmol/L (22-29); Chloride 104 mmol/L (98-107); Globulin 3.7 g/dL (1.3-4.6); Glomerular Filtration Rate 89.7 mL/min (90-130); Glucose 102 mg/dL (65-115); Magnesium 2.3 mg/dL (1.7-2.3); Osmolality Calculated 285 mOsm/kg (285-295); Potassium 4.2 mmol/L (3.5-5.1); Sodium 138 mmol/L (136-145); Total Bilirubin 0.5 mg/dL (0.15-1.2); Total Protein 6.9 g/dL (6.6-8.7)
[2020-03-07 08:00] VITALS: BP 154/89; PULSE 66; RESP 20; TEMP 36.5; O2SAT 98
[2020-03-07] MEDS: aspirin 81 mg EC Tablet PO (08:30)
[2020-03-07] MEDS: ciprofloxacin 500 mg Tablet PO ×2 (08:59→18:14)
[2020-03-07] MEDS: metoprolol tartrate 25 mg Tablet PO ×2 (08:59→18:15)
[2020-03-07] MEDS: magnesium hydroxide 30 mL UDC PO ×2 (10:51→18:14)
[2020-03-07] MEDS: acetaminophen 325 mg Tablet 650 MG PO (10:51)
[2020-03-07 11:22] VITALS: BP 143/86; PULSE 66; RESP 18; TEMP 36.6; O2SAT 98
--- NOTE | 2020-03-07 11:30 | PM.PN ---
Subjective Subjective: Interval history: The patient is doing well. Denies any uncontrolled pain. No fever since last 24 hours. No chills. No nausea or vomiting. No diarrhea. No abdominal pain. No chest pain, shortness of breath, cough, palpitations. Medications: Reviewed: Yes Medication Review Details: Generic Name Dose Route Start Last Admin Trade Name Freq PRN Reason Stop Dose Admin Acetaminophen 650 mg 03/04/20 18:09 03/07/20 10:51 Tylenol PO 650 mg Q6H PRN Administration Mild/Mod Pain Or Temp >/= 101 Hydrocodone Bitart /Acetaminophen 1 tab 03/04/20 18:09 03/06/20 21:36 [place] 5-325 Mg PO 1 tab Q4H PRN Administration MODERATE TO SEVER E PAIN Aspirin 81 mg 03/05/20 09:00 03/07/20 08:30 Aspirin Ec PO 81 mg DAILY ANDREW Administration Ciprofloxacin HCl 500 mg 03/07/20 09:00 03/07/20 08:59 Cipro PO 500 mg BID ANDREW Administration Protocol Enoxaparin Sodium 40 mg 03/04/20 19:00 03/06/20 18:16 Lovenox SUBCUT 40 mg Q24H ANDREW Administration Magnesium Hydroxid e 30 ml 03/07/20 10:00 03/07/20 10:51 Milk Of Magnesia PO 30 ml Q8H ANDREW Administration Metoprolol Tartrat e 25 mg 03/07/20 09:00 03/07/20 08:59 Lopressor PO 25 mg BID ANDREW Administration Morphine Sulfate 2 mg 03/04/20 18:09 03/06/20 01:17 Morphine IVP 2 mg Q4H PRN Administration SEVERE PAIN Nicotine 1 patch 03/05/20 21:00 03/07/20 09:08 Nicoderm 21 Mg P atch TRANSDERMA Not Given DAILY ANDREW Ondansetron HCl 4 mg 03/04/20 15:43 03/06/20 04:24 Zofran IVP 4 mg Q6H PRN Administration NAUSEA AND VOMITI NG Vitals/I&O/Wt Last Vital Signs Temp 98 F 03/07/20 11:22 Pulse 66 03/07/20 11:22 Resp 18 03/07/20 11:22 BP 143/86 03/07/20 11:22 Pulse Ox 98 03/07/20 11:22 0903/07/20 03/07/20 22:59 06:59 14:59 Intake Total 390 / 1040 240 / 240 Balance 390 / 1040 240 / 240 Physical Exam Narrative: EXAM NARRATIVE: The patient is awake alert and oriented. no acute distress. Responses are adequate. Skin is warm and dry. Moist extremities. Neck supple. No JVD Lungs clear bilaterally. Heart S1, S2, regular Abdomen is soft, obese, tender in the right flank and suprapubic area. No rebound. Bowel sounds are present. No guarding. Extremities no edema cyanosis or calf tenderness bilaterally Neuro examination is nonfocal. Normal speech. Eyes Kaitlin. Extraocular muscles are intact. Data : 03/07/20 04:45 03/07/20 04:45 Micro: Microbiology 03/04/20 12:20 Urine Culture - Final Urine,Clean Catch Escherichia coli A&P Assessment and plan (1) Pyelonephritis of right kidney: Status: Acute (2) Diarrhea: Status: Acute Qualifiers: Diarrhea type: unspecified type Qualified Code(s): R19.7 - Diarrhea, unspecified (3) Colon wall thickening: Status: Acute (4) Adrenal mass: Status: Acute Additional A&P Information 49-year-old female with past medical history of coronary artery disease/stent about a year ago who is presenting with right flank pain, fever and chills. Sepsis secondary to urinary tract infection. resolved. Continue monitoring. Right-sided pyelonephritis and kidney abscess. appreciate Dr. Chowdhury's input. Switching antibiotics to p.o. We will discharge her tomorrow if she remains afebrile. Colon wall thickening. Differential includes inflammation, infection, possible GI tumor. We will closely monitor patient's symptoms. Will consider stool testing if develops diarrhea. The patient will require colonoscopy after stabilization and treatment of her current infection for diagnostic reasons. This was discussed in length with the patient. She verbalized understanding and agreement. Left adrenal mass. This is accidentally found on the CT. The patient is informed. Will require outpatient follow-up and additional testing for long-term monitoring. She verbalized understanding and agreement. Elevated LFTs. I suspect this is secondary to sepsis. Improved. Will require outpatient follow-up. DVT prophylaxis. Lovenox. History of coronary artery disease. aspirin and beta-heriberto. Not ordering statin due to elevated LFTs. The patient was counseled about tobacco abuse. She agrees to quit smoking. Will require outpatient follow-up with PCP and a wet machine cutter. full code. The plan of care was discussed with the patient. She verbalized consent and agreement. Attestations Medical Necessity Statement*: Probably home tomorrow if she remains afebrile for another 24 hours. Coding Level of Care Code Acute Cement Or Concrete Finishing Supervisor for [facility] Fwd Diagnoses Pyelonephritis of right kidney N12 Diarrhea R19.7 Diarrhea type: unspecified type Colon wall thickening K63.9 Adrenal mass E27.8
--- NOTE | 2020-03-07 15:05 | PM.PN ---
Subjective Subjective: Interval history: Urology follow-up: Feels much much better today. Denies any temperature spikes. Much decreased pain. More energy. It looks like she may be discharged tomorrow on oral antibiotics if she does well over the 24 hours post change of route. Reviewed again the findings on the CT scan including the pyelonephritis type changes and the small left adrenal nodule most likely a benign adenoma. She does in fact still have some work-up to be done on her right colon and has an appointment scheduled to see Dr. Pabon for colonoscopy evaluation. Those findings may influence the interpretation of the adrenal gland. She will schedule a follow-up visit with me about the time she is finishing her antibiotics for reevaluation. Vitals/I&O/Wt Last Vital Signs Temp 98 F 03/07/20 11:22 Pulse 66 03/07/20 11:22 Resp 18 03/07/20 11:22 BP 143/86 03/07/20 11:22 Pulse Ox 98 03/07/20 11:22 03/07/20 03/07/20 03/07/20 06:59 14:59 22:59 Intake Total 600 / 600 Balance 600 / 600 Physical Exam Const: COMMON NORMALS: no acute distress, alert and well nourished GENERAL APPEARANCE: well kempt and well developed ORIENTATION/CONSCIOUSNESS: not confused Eye: COMMON NORMALS: conjunctivae normal and no scleral icterus CONJUNCTIVA: Yes conjunctivae normal Neck/C-Spine: COMMON NORMALS: full ROM GENERAL: Yes normal visual inspection Resp: COMMON NORMALS: normal respiratory effort EFFORT & INSPECTION: No labored and No Actively coughing Neuro: COMMON NORMALS: no focal motor deficits SENSORIUM/ORIENTATION: Yes alert Psych: COMMON NORMALS: mental status grossly normal APPEARANCE: Yes grossly normal and Yes well kempt ATTITUDE: Yes calm and Yes engaged Data : 03/07/20 04:45 03/07/20 04:45 A&P Assessment and plan (1) Pyelonephritis of right kidney: Clinically significantly improved after antibiotic therapy. We will follow-up after completion of antibiotics Status: Acute (2) Colon wall thickening: Pending colonoscopy. Status: Acute (3) Adrenal mass: Likely benign adenoma. Measures 1.3 cm in size. Status: Acute Attestations Medical Necessity Statement*: See attending Coding Level of Care Code Acute Skid Man for [facility] Fwd Diagnoses Pyelonephritis of right kidney N12 Colon wall thickening K63.9 Adrenal mass E27.8
[2020-03-07] MEDS: nicotine 14 mg Patch 1 PATCH TRANSDERMA (15:25)
[2020-03-07 15:33] VITALS: BP 120/64; PULSE 74; RESP 20; TEMP 36.8; O2SAT 98
[2020-03-07] MEDS: docusate sodium 100 mg Capsule PO (18:15)
[2020-03-07] MEDS: enoxaparin 40 mg/0.4 mL Syringe SUBCUT (18:15)
[2020-03-07 19:14] VITALS: BP 168/98; PULSE 74; RESP 18; TEMP 36.6; O2SAT 96
[2020-03-07] MEDS: HYDROcodone-acetaminophen 5-325 mg Tablet 1 TAB PO (20:31)
[2020-03-08] VITALS: BP 120/78; PULSE 59; RESP 18; TEMP 36.7; O2SAT 95
[2020-03-08 04:00] VITALS: BP 145/84; PULSE 61; RESP 20; TEMP 36.7; O2SAT 95
[2020-03-08] MEDS: magnesium hydroxide 30 mL UDC PO (04:36)
--- NOTE | 2020-03-08 07:25 | PC.NURSE ---
Patient is alert and oriented, denies pain, reports having large BM this morning after previous shift gave medication to aide with BM. Discussed plan of care, verbalized understanding. Call light in reach, side rails up X2.
[2020-03-08 07:45] VITALS: BP 148/79; PULSE 57; RESP 18; TEMP 36.5; O2SAT 97
[2020-03-08] MEDS: docusate sodium 100 mg Capsule PO (08:25)
[2020-03-08] MEDS: ciprofloxacin 500 mg Tablet PO (08:25)
[2020-03-08] MEDS: nicotine 14 mg Patch 1 PATCH TRANSDERMA (08:25)
[2020-03-08] MEDS: aspirin 81 mg EC Tablet PO (08:25)
--- NOTE | 2020-03-08 09:22 | PC.NURSE ---
Dr. Galaviz notified of decreased heart rate 57, held morning dose of metoprolol, new order received to change metoprolol to 12.5mg PO BID, see MAR for further details.
[2020-03-08] MEDS: metoprolol tartrate 25 mg Tablet 12.5 MG PO (09:32)
[2020-03-08 11:24] VITALS: BP 113/70; PULSE 57; RESP 18; TEMP 36.9; O2SAT 98
--- NOTE | 2020-03-08 12:08 | PM.DCS ---
Discharge Providers Date of Admission: 03/04/20 14:01 Date of Discharge: March 08, 2020 Attending Provider at Admission: Issa Galaviz Attending Provider at Discharge: Issa Galaviz Primary Care Provider: Dung Aldana DO Diagnoses at Discharge Discharge Diagnosis (1) Pyelonephritis of right kidney: Status: Acute (2) Colon wall thickening: Status: Acute (3) Adrenal mass: Status: Acute Reason for Visit Reason for Visit: ABDOMEN PAIN Hospital Course Discharge Summary: 49-year-old female with past medical history of coronary artery disease/stent about a year ago who is presenting with right flank pain, fever and chills. Sepsis secondary to urinary tract infection. Urine culture positive for E. coli. Improved significantly with IV antibiotics. She is switched to Cipro yesterday. Continues improving. Ready for discharge home. Today she denies any active complaints. Right-sided pyelonephritis and kidney abscess. appreciate Dr. Chowdhury's input. The patient will follow-up with him after discharge. Colon wall thickening. Differential includes inflammation, infection, possible GI tumor. Currently no GI complaints. The patient will require colonoscopy after completion of the treatment of the infection for diagnostic reasons. This was discussed in length with the patient. She verbalized understanding and agreement. Referral is provided to see Dr. Pabon. Left adrenal mass. This is accidentally found on the CT. The patient is informed. Will require outpatient follow-up and possible additional testing for long-term monitoring. She verbalized understanding and agreement. Elevated LFTs. I suspect this is secondary to sepsis. Improved. Will require outpatient follow-up. DVT prophylaxis. Received Lovenox. History of coronary artery disease. aspirin and beta-heriberto. Not ordering statin due to elevated LFTs. The patient was counseled about tobacco abuse. She agrees to quit smoking. Will require outpatient follow-up with PCP and a manager of software. Referral is provided. Physical Exam Narrative: EXAM NARRATIVE: The patient is awake alert and oriented. no acute distress. Responses are adequate. Skin is warm and dry. Moist extremities. Neck supple. No JVD Lungs clear bilaterally. Heart S1, S2, regular Abdomen is soft, obese, nontender. No rebound. Bowel sounds are present. No guarding. Extremities no edema cyanosis or calf tenderness bilaterally Neuro examination is nonfocal. Normal speech. Eyes [place]. Extraocular muscles are intact. Discharge Data Data Completed and Pending: Completed Studies During Hospitalization Category Date Time Status CT abdomen pelvis w con* [id number] Stat Cat Scan 03/04/20 12:34 Completed Pending at discharge Category Date Time Status Blood Culture Sta t Lab 03/04/20 14:05 Results Vitals: Last Vital Signs Temp 98.4 F 03/08/20 11:24 Pulse 57 L 03/08/20 11:24 Resp 18 03/08/20 11:24 BP 113/70 03/08/20 11:24 Pulse Ox 98 03/08/20 11:24 Discharge Plan Discharge Patient Disposition: Home Condition: Stable Prescriptions: New nicotine 14 mg/24 hr Patch 24 Hour 1 patch transdermal DAILY Qty: 14 RF: 0 ciprofloxacin HCl 500 mg Tablet 500 mg PO BID Qty: 20 RF: 0 aspirin 81 mg Tablet,Delayed Release (Dr/Ec) 81 mg PO DAILY Qty: 30 RF: 0 metoprolol tartrate 25 mg Tablet 12.5 mg PO BID Qty: 30 RF: 0 Continued Tylenol 325 mg Tablet 325 mg PO QID PRN (Reason: Pain) RF: 0 Discontinued Aleve 1 - 2 tab PO Q6H PRN (Reason: Pain) RF: 0 Discharge Orders: Discharge Order (Routine); Ordered 03/08/20 Ordered By: Issa Galaviz Other Ambulatory Orders: Complete Blood Count w/Auto (Routine) Timeframe: 2 Weeks Location: Determined by Patient Ordered By: Issa Galaviz Comprehensive Metabolic Panel (Routine) Timeframe: 2 Weeks Facility: [facility] - Location: Lab - Main Lab Ordered By: Issa Galaviz Referrals: Golden Desouza MD [Physician] - 7-10 days Smith Del Toro MD [Physician] - 2 weeks Donte Chowdhury MD [Physician] - 2 weeks Noel Pabon MD [Physician] - 2 weeks Discharge Diet: Cardiac Discharge Activity: Resume usual activity Patient Instructions: Ciprofloxacin (By mouth), How to Stop Smoking (DC), Cigarette Smoking and Your Health (GEN) Activity Restrictions/Additional Instructions: Please come back to emergency room if develop fever or chills, confusion, weakness, dizziness or lightheadedness, nausea or vomiting, abdominal pain, back pain, problems with urination, changes in the appearance of the urine, diarrhea, chest pain, palpitations, shortness of breath, cough, or any other new complaints. Please do not smoke. Discharge Attestations Time Spent in Discharge Care*: greater than 30 min Quality Metrics Clinical Quality Measures During this hospital stay, did patient experience: None Coding Level of Care Code Acute Dietary Worker for [facility] Fwd Diagnoses Pyelonephritis of right kidney N12 Colon wall thickening K63.9 Adrenal mass E27.8
[2020-03-08 12:09] VITALS: BP 113/70; PULSE 57; RESP 18; TEMP 36.9; O2SAT 98
--- NOTE | 2020-03-08 12:38 | PC.NURSE ---
Pt stated she would like to do Meds to Beds d/t need for prescriptions to be billed. [facility] [place] pharmacy closed until Tuesday. Spoke to Bi in inpatient pharmacy. He instructed this nurse to put orders in for enough meds to get her through until Tuesday and pull them from our [facility] to send with her.
--- NOTE | 2020-03-08 14:21 | PC.NURSE ---
Discharge Meds This nurse pulled pt meds to be sent home with pt discharge. Meds sent home with pt: aspirin 81mg(1), Ciprofloxacin 500mg(3), 12.5mg Metoprolol (two 25mg tablets), nicotine patch 14mg (1).
== END 2020-03-08 14:27 | disposition home or self-care (01) | DRG 872 ==
LOC: ER 12:25 → MEDSURG 14:58
PROVIDERS: Emergency Medicine; Family Medicine; Admitting Provider Internal Medicine; Family Provider Family Medicine; PCP Family Medicine; Visit Provider Internal Medicine
DX: A41.9 Sepsis, unspecified organism (principal); N39.0 Urinary tract infection, site not specified; N12 Tubulo-interstitial nephritis, not specified as acute or chronic; I25.10 Atherosclerotic heart disease of native coronary artery without angina pectoris; B96.20 Unspecified Escherichia coli [E. coli] as the cause of diseases classified elsewhere; Z95.5 Presence of coronary angioplasty implant and graft; E27.9 Disorder of adrenal gland, unspecified; F17.210 Nicotine dependence, cigarettes, uncomplicated; F12.20 Cannabis dependence, uncomplicated; I10 Essential (primary) hypertension; E78.5 Hyperlipidemia, unspecified
CPT/HCPCS: 12345; 36415; 74177; 80053; 80069; 81001; 83690; 83735; 84703; 85025; 87040; 87077; 87086; 87186; 96372; 96375; 99283; J0696; J1650; J2270; J2405; J2543; J7030; Q9967

== ENCOUNTER 2020-03-22 10:33 | Outpatient (CLI) | payer SELFPAY ==
[2020-03-22 11:00] LABS: Basophils # 0.1 10^3/uL (0.0-0.1); Basophils % 0.8 %; Eosinophils # 0.2 10^3/uL (0.0-0.8); Eosinophils % 2.3 %; Hematocrit 48.3 % (37.0-47.0); Hemoglobin 15.4 g/dL (11.5-15.3); Mean Corpuscular HGB Conc 31.9 g/dL (30.0-36.0); Mean Corpuscular Hemoglobin 31.6 pg (28.0-34.0); Mean Platelet Volume 10.4 fL (7.4-10.4); Monocytes # 0.5 10^3/uL (0.2-0.9); Monocytes % 6.6 %; Neutrophils # 3.93 10^3/uL (1.8-7.7); Neutrophils % 50.9 %; Nucleated Red Blood Cells % 0 %; Platelet Count 385 10^3/cmm (130-400); Red Blood Count 4.88 10^6/uL (4.1-5.3); White Blood Count 7.7 10^3/uL (4.0-10.0)
[2020-03-22 11:29] LABS: Alanine Aminotransferase 10 U/L (0-33); Albumin Level 4.2 g/dL (3.5-5.2); Alkaline Phosphatase 98 IU/L (35-105); Anion Gap 15.3 (5-19); Aspartate Amino Transferase 14 U/L (0-32); Blood Urea Nitrogen 12 mg/dL (6-20); Calcium 9.2 mg/dL (8.5-10.5); Carbon Dioxide 26 mmol/L (22-29); Chloride 102 mmol/L (98-107); Globulin 3.4 g/dL (1.3-4.6); Glomerular Filtration Rate 76.9 mL/min (90-130); Glucose 132 mg/dL (65-115); Osmolality Calculated 290 mOsm/kg (285-295); Potassium 4.3 mmol/L (3.5-5.1); Sodium 139 mmol/L (136-145); Total Bilirubin 0.3 mg/dL (0.15-1.2); Total Protein 7.6 g/dL (6.6-8.7)
== END 2020-03-22 10:34 | disposition home or self-care (01) ==
LOC: LAB 10:35
PROVIDERS: PCP Family Medicine; Visit Provider Internal Medicine
DX: N12 Tubulo-interstitial nephritis, not specified as acute or chronic (principal)
CPT/HCPCS: 36415; 80053; 85025

== ENCOUNTER → 2020-03-31 11:52 | Outpatient (BNVA) | payer OTHER, SELFPAY | PROVIDERS: PCP Family Medicine; Visit Provider Internal Medicine Cardiovascular Disease | DX: Z20.828 Contact with and (suspected) exposure to other viral communicable diseases (principal); R07.89 Other chest pain; I25.5 Ischemic cardiomyopathy; E78.5 Hyperlipidemia, unspecified | CPT/HCPCS: 80061; 80076; 87635 ==

== ENCOUNTER → 2020-04-03 09:05 | Day surgery (SDC) | payer SELFPAY ==
[2020-04-01 10:59] VITALS: BMI 29.9
[2020-04-03 09:27] VITALS: BP 134/101; PULSE 98; RESP 18; TEMP 36.6; O2SAT 98
[2020-04-03] MEDS: sodium chloride 0.9% 1,000 ML 30 ML IV (09:51)
[2020-04-03 09:57] VITALS: BP 132/88; PULSE 86
--- NOTE | 2020-04-03 10:15 | PC.NURSE ---
PROCEDURE CANCELLED PER PHYSICIAN AND ANESTHESIA PENDING CARDIAC CLEARANCE. ECHOCARDIOGRAM SCHEDULED FOR , TO BE DONE TODAY WHILE HERE.
--- NOTE | 2020-04-03 10:16 | USCV_ITS ---
Samantha Austin Age: 50 Gender: F : 1970 Exam Date: 04/03/2020 10:36 Ordering Phys: Noel Pabon MD Technologist: Nighat Wiley Exam Location: [facility] [place] Indication: atypical chest pain BP: / HR: 74 Rhythm: Sinus Technical Quality: Good MEASUREMENTS (Male / Female) Normal Values 2D ECHO LVOT Diameter 2.0 cm LV Ejection Fraction MOD 2C 29.2 % LV Ejection Fraction 2C AL 28.6 % LA Diameter 2.2 cm LA Width 3.6 cm LA Height 5.4 cm RA Width 3.5 cm RA Height 3.7 cm M-MODE LV Diastolic Diameter MM 5.5 cm 4.2 - 5.9 / 3.9 - 5.3 cm LV Systolic Diameter MM 4.5 cm LV Ejection Fraction MM Teich 36.8 % IVS Diastolic Thickness MM 0.4 cm 0.6 - 1.0 / 0.6 - 0.9 cm IVS Systolic Thickness MM 0.4 cm LVPW Diastolic Thickness MM 0.7 cm 0.6 - 1.0 / 0.6 - 0.9 cm LVPW Systolic Thickness MM 1.1 cm Aortic Annulus Diameter 3.1 cm LA Ao Ratio MM 0.7 MV E Point Septal Separation 1.6 cm DOPPLER AV Peak Velocity 118.0 cm/s LVOT Peak Velocity 75.0 cm/s AV Area Cont Eq vti 2.3 cm squared AV Area Cont Eq pk 2.0 cm squared PV Peak Velocity 89.0 cm/s RV Acceleration Time 0.1 s FINDINGS Left Ventricle Diffuse hypokinesis of the left ventricle with an ejection fraction of 30 to 35%. Mildly dilated left ventricle Right Ventricle The right ventricle is normal in size and function. Right Atrium Normal right atrial size. Left Atrium Mildly increased left atrial size. Mitral Valve Thickened mitral valve. Trace mitral valve regurgitation. Aortic Valve Thickened aortic valve. Tricuspid Valve No gross abnormalities noted no gross abnormalities noted Pulmonic Valve No gross abnormalities noted Pericardium No pericardial effusion. Aorta Normal ascending aorta dimension. CONCLUSIONS Diffuse hypokinesis of the left ventricle with an ejection fraction of 30 to 35%. Mildly dilated left ventricle. Mildly increased left atrial size. Thickened mitral valve. Trace mitral valve regurgitation. Thickened aortic valve. There is no pericardial effusion. There are no intracardiac masses. No previous study is available for comparison. Dr Smith Del Toro MD FACC (Electronically Signed) Final Date: 03 April 2020 18:04 S
--- NOTE | 2020-04-03 10:19 | P.ANESASSM_ITS ---
Pre-Anesthetic Assessment Pre-Anesthetic Assessment: Height/Weight: Height 1.65 m Weight 81.647 kg Temp Pulse Resp BP Pulse Ox 97.9 F 86 18 132/88 98 04/03/20 09:27 04/03/20 09:57 04/03/20 09:27 04/03/20 09:57 04/03/20 09:27 Preop Diagnosis: colon thickening Proposed Procedure: Operation Date: 04/03/20 09:30 Proposed Procedures p Colonoscopy 13750 K63.9(Not Applicable) - Noel Pabon MD Last intake: Intake Last Liquid Date 04/02/20 Last Liquid Time 21:00 Last Solid Date 04/01/20 Last Solid Time 17:00 Social: Social History: Alcohol and Tobacco Comment: IV meth Exam: Pre-Anes Outpt Exam: alert, oriented x 3, clear to auscultation bilaterally and regular rate & rhythm Airway: Dentition: Other (multiple mising and broken teeth) CV/HEM: CV/HEM: CAD, HTN and WA Comments: in 2018Patient had WA requiring need for 4 stents, but only 2 could be placed at that time because patient coded on table. (EF 35% on lats echo). She was supposed to return for 2 more stents, but never did. She also quit taking her blood thinner 1 month after the stents were placed d/t financial difficulty. Dr. Del Toro 03/31/20 note states patient has been having exertional chest pain recently. He intended to perform echo to help guide further managemtn to include possible angiogram and intervention. He also started her on several cardiac medications, which the patient has not started taking. She has not had her echo. We will have bedside echo performed today and try to move patient's cardiology followup appointment in May to a closer date in the future. : Comments: pyelonephritis GI: Comments: colon wall thickening seen on CT in february Metabolic: Metabolic: Hyperlipidemia Anesthetic Plan: ASA status: 4 Meds/Allergies Current Medications: Current Medications Generic Name Dose Route Start Last Admin Trade Name Freq PRN Reason Stop Dose Admin Sodium Chloride 1,000 mls @ 30 ml s/hr 04/03/20 09:30 04/03/20 09:51 Sodium Chloride 0.9% IV 30 mls/hr .Q24H ANDREW Administration PFSH Anesthesia PFSH: Medical History (Updated 10/20/20 @ 10:00 by Smith Del Toro MD) Atherosclerotic heart disease of [place] coronary artery with other forms of angina pectoris The EKG showed normal sinus rhythm with features of old anteroseptal myocardial infarction. Nonspecific ST-T changes in the inferior and high lateral leads. Nonspecific IVCD. Benign essential HTN Coronary artery disease Drug abuse and dependence Dyslipidemia Ischemic cardiomyopathy Surgical History History of appendectomy S/P percutaneous transluminal angioplasty ([employer]) with stent placement Family History Grandmother Cancer maternal liver Grandfather Cancer maternal lung Mother Diabetes Denies family history of Anesthesia complication Bleeding disorder Social History Smoking and tobacco status: current every day smoker Alcohol intake: current Alcohol intake frequency: holidays/special occasions only Other details last substance use: IV methamphetamine use Household members: friend(s) Marital status: Single Current occupational status: unemployed History of recent travel: No Female Reproductive History: Date of last menstrual period: 08/12/19 Data Anesthesia Cardiac Studies: No Data to Display
--- NOTE | 2020-04-03 11:22 | SUR.PREOP ---
1030 Case cancelled due to need for cardiac clearance per anesthesia.
== END ==
LOC: OR 09:06
PROVIDERS: PCP Family Medicine; Visit Provider Surgery
PROC: 0DJD8ZZ Inspection of Lower Intestinal Tract, Via Natural or Artificial Opening Endoscopic (ICD-10-PCS; CPT 45378; principal; 2020-04-03 09:30)
DX: R07.89 Other chest pain (principal)
CPT/HCPCS: 93306; J7030

== ENCOUNTER → 2020-04-18 14:17 | Outpatient (BNVA) | payer OTHER, SELFPAY | PROVIDERS: PCP Family Medicine; Visit Provider Internal Medicine Cardiovascular Disease | DX: Z20.828 Contact with and (suspected) exposure to other viral communicable diseases (principal) | CPT/HCPCS: 87635 ==

== ENCOUNTER 2020-04-24 16:31 | Outpatient (CLI) | payer SELFPAY ==
[2020-04-18 14:54] LABS: Basophils % 0.3 %; Eosinophils # 0.3 10^3/uL (0.0-0.8); Eosinophils % 3.7 %; Hematocrit 46.1 % (37.0-47.0); Hemoglobin 15.1 g/dL (11.5-15.3); Lymphocytes # 3.1 10^3/uL (0.8-4.8); Lymphocytes % 34.2 %; Mean Corpuscular HGB Conc 32.8 g/dL (30.0-36.0); Mean Corpuscular Hemoglobin 31.8 pg (28.0-34.0); Mean Corpuscular Volume 97.1 fL (81-99); Mean Platelet Volume 10.4 fL (7.4-10.4); Monocytes # 0.7 10^3/uL (0.2-0.9); Monocytes % 7.5 %; Neutrophils # 4.83 10^3/uL (1.8-7.7); Nucleated Red Blood Cells % 0 %; Platelet Count 331 10^3/cmm (130-400); Red Blood Count 4.75 10^6/uL (4.1-5.3); Red Cell Distribution Width 12.7 % (12.1-15.1)
[2020-04-18 15:08] LABS: INR 0.93 (0.83-1.21); Prothrombin Time (Patient) 12.8 Seconds (12.0-15.1)
[2020-04-18 15:14] LABS: Anion Gap 15.7 (5-19); Blood Urea Nitrogen 16 mg/dL (6-20); Calcium 9.4 mg/dL (8.5-10.5); Carbon Dioxide 24 mmol/L (22-29); Chloride 102 mmol/L (98-107); Glomerular Filtration Rate 106.7 mL/min (90-130); Glucose 100 mg/dL (65-115); Osmolality Calculated 285 mOsm/kg (285-295); Potassium 4.7 mmol/L (3.5-5.1); Sodium 137 mmol/L (136-145)
--- NOTE | 2020-04-23 08:17 | PC.NURSE ---
rescheduled procedure pt arrived to the hospital at 730. warehouse shipping supervisor advised [facility] of no current open beds or any foreseeable beds today. Dr. Del Toro came to talk to the patient regarding todays possibilities and it was decided the patient will be called tomorrow if there is a bed possible for a 1630 case tomorrow 04/24/20. she was instructed to have a light breakfast in case we call and have her come in for procedure. pt was also given a [employer] gift card.
[2020-04-24] VITALS (16 sets, daily range): BP systolic 86–133; BP diastolic 51–72; PULSE 56–83; RESP 12–23
--- NOTE | 2020-04-24 08:30 | XACV_ITS ---
Exam Room: [facility] Ht: 165 cm Wt: 84 kg BSA: 1.99 m2 Gender: Female : 1970 Any Known Allergies: Natural rubber and latex Exam Priority: Routine Procedure(s): Procedure Description: Diagnostic procedure Procedure Description: Left Heart Catheterization Procedure Description: Left ventriculography Procedure Description: Coronary Angiography Diagnostic Cath Status: Elective Diagnostic Findings * No significant disease noted in the Left Main, LAD, Circumflex, or RCA coronary arteries. * Coronary angiography shows right dominance. * Left main is a medium caliber vessel with mild ostial narrowing. * Left hand descending artery is a medium caliber vessel which appears to wrap around the LV apex minimally. The proximal to mid long stented segment appeared to be widely patent. The first diagonal branch coming off the stented area appears to be jailed with an ostial stenosis of around 80%. This seems to be relatively small caliber vessel. The distal left anteceding artery was found to have minimal intimal irregularities.. * The left circumflex artery is a medium caliber codominant vessel which was found to have mild diffuse disease proximally. The first obtuse marginal branch gives of a side branch proximally which has a 50% narrowing near the ostium. Soon after the first obtuse marginal branch, the mid circumflex artery was found to have around 50% narrowing. Distally the artery bifurcates. At the bifurcation, there was diffuse narrowing of around 50 to 60%. No other significant stenotic lesions were noted.. * The intermedius branch is a small caliber vessel which was found to have around 60 to 70% ostial narrowing. * Right coronary artery is a small to medium caliber codominant vessel which was found to have diffuse spasm involving the ostium. Moderate, 50 to 50% diffuse narrowing was noted in the proximal segment of the artery. After the first right ventricular branch, the artery appears to have another 50% stenosis. The PLV branch of the artery was found to have around 50% proximal narrowing.The PDA branch was found to be rudimentary no other significant stenotic lesions were noted.. Conclusions 1. No significant disease noted in the Left Main, LAD, Circumflex, or RCA coronary arteries. 2. Moderate left ventricular systolic dysfunction. Ejection fraction of 35%. 3. This is a 50-year-old white female with a history of coronary disease and myocardial infarction presents with complaints of increasing episodes of chest pains. She had acute myocardial infarction in January 2019. At that time, she was found to have an occluded LAD for which she underwent PCI. At that time the angiogram revealed a high-grade lesions in the circumflex and right coronary arteries. The plan was to do a staged PCI of the circumflex and right coronary artery after intervening the culprit lesion. Patient apparently lost her follow-up because of her incarcerations. She also was noncompliant with medications. Her LV ejection fraction was 30 to 35% based on echocardiogram. In view of her ongoing symptoms and the previous cardiac residual findings, noted to further evaluate her coronary status, a repeat cardiac catheterization and possible PCI was recommended. Patient underwent left heart catheterization with left and right coronary angiogram and LV angiogram today. The findings are as follows. 4. Patent stented segment of the left and descending artery involving the proximal and mid segments. A jailed a high-grade lesion in the relatively small caliber of first diagonal branch of the left anterior descending artery and another high-grade lesion at the ostium of the small caliber intermedius artery. Moderate diffuse disease in the circumflex and right coronary artery. Severe spasm in the proximal segment of the right coronary artery, involving the ostium which was confirmed by intracoronary injection of nitroglycerin. LV ejection fraction 35%. LVEDP of 10 mmHg.. Recommendations * Continue current medical management and risk factor modification. Interventional RX Recommendation: none Diagnostic RX Recommendation: medical therapy and/or counseling Ventriculography Ejection Fraction: 35.0 % Left Ventriculography Findings: * The LV gram was performed the VAZQUEZ projection. The LV cavity appears to be mildly dilated. There was severe diffuse hypokinesia of the mid and apical anterior and apical inferior wall segments. LV ejection fraction was around 35%. The LVEDP was 10 mmHg. No significant mitral valve prolapse or mitral regurgitations were noted. Pressures Phase:Rest AO : 140 / 80 ( 102 ) @ 11:29:00 AM 101 / 60 ( 77 ) @ 11:31:00 AM 111 / 64 ( 82 ) @ 11:42:00 AM 121 / 58 ( 88 ) @ 11:42:00 AM LV : 103 / 3 / @ 11:41:00 AM 127 / 5 / @ 11:42:00 AM 112 / 4 / @ 11:42:00 AM Valves Phase:DefaultPhase AV : 0.0 @ 5:51:47 PM AV Mean Gradient: 0.0 @ 5:51:47 PM Clinical Evaluation EBL: 5mL-10mL Procedural Details Procedure Consent Obtained. Pre-Procedure Time Out. Identified patient by full name and date of as verbalized by the patient/guarantor. Does the consent match the physician's order: Yes. Accurate & Complete Informed Consent: Yes. Inpatient/Outpatient History & Physical on Chart: Yes. If H&P is completed, is and addenduem needed: No; If yes, is the addendum complete: N/A. Visualize and Verify Site with Patient/Guarantor: N/A. Relevant Radiology Images available: N/A. Pre-op teaching completed and patient verbalized understanding. The risks, benefits, and alternatives of sedation and/or procedure were discussed by physician. The patient agrees to continue. Procedure started. [facility] Clinical Fraility Score: 4: Vulnerable. Egg Processor Indications: Worsening Angina. Chest Pain Symptom Assessment: Atypical Angina. Cardiovascular Instability: No. Correct patient, site and procedure confirmed by cath team. PERRLA. Strong, equal hand tool and gauge inspector bilaterally. Lungs clear x 5 lobes. IV Site on Arrival: 20 gauge in the left forearm. IV Fluids: 0.9% NaCl at KVO. 0 mL infused prior to labor expediter. Pre Procedural Pulses: bilateral dorsalis pedis was Doppled. Pre Procedural Pulses: bilateral posterior tibial was Doppled. Pre Procedural Pulses: bilateral radial was 2+. Oxygen started at 2liters/min via nasal canula. Physician notified. bilateral groins was prepped with chloroprep then draped in the usual sterile fashion. Baseline sample Acquired. HR: 86 BPM. Physician arrived. Physician scrubbed in. Immediate Pre-Procedure Time Out. Correct Patient: Yes; Correct Procedure: Yes; Correct Site: Yes; Correct Patient Position: Yes; Correct Supplies: Yes; Dried Flammable Prep: Yes; Blood Products Available: N/A;. Lidocaine 1% infiltrated to the right groin. Arterial access obtained with micropuncture set. A 5 angolan JR4 catheter in over wire. Equipment: 6F - Femoral. Cardiac Cath Pack. ACIST Manifold Kit Model BT 2000. Heparinized Saline (2 units/mL), 1000 mL bag. Kit, Micropuncture. Multiple views taken of left coronary artery. Catheter out. A 5 angolan JR4 catheter in over wire. Multiple views taken of right coronary artery. Catheter out. A 5 angolan Angled Pig catheter in over wire. EDP Sample taken: LV 103/3,10; HR: 63 BPM; SpO2: 97%. LV gram performed in VAZQUEZ @ 10 mL/second for a total of 30 mL. EDP Sample taken: LV 127/5,13; HR: 68 BPM; SpO2: 97%. Pullback taken: LV 112/4,15; AO 111/64(82); Mean: 0mmHg, Peak to Peak: 0mmHg, SEP: 16sec/min; HR: 65 BPM; SpO2: 97%. Catheter out. Physician scrubbed out. A Suture was successful obtaining hemostatsis at the Right Femoral artery insertion site. Sheath(s) sutured into position with 2-0 silk and sterile 4x4's and Op-site applied over the site. No oozing or signs and symptoms of hematoma noted. Arterial sheath flushed and connected to tranducer and pressure bag with heparinized saline. Post Procedure: Pulses reassessed and unchanged. PERRLA. Strong, equal hand tool and gauge inspector bilaterally. No VTE prophylaxis required. Post-op diagnosis: patent stents. Complications: none. Estimated blood loss: 5mL-10mL. Contrast type used: Omnipaque 300 mgI/mL, 500 mL bottle. Procedure completed. Patient transferred by bed to 1st floor. Vital chart was stopped. Total IV fluids: 250 mL. Medication's Wasted: Lidocaine 1% = 10 mL. Medication's Wasted: Nitro = 49.8 mg. Medication's Wasted: Heparin = 2500 units. Medication's Wasted: Other = versed 1 mg. Medication's Wasted: Other = fentanyl 50 mcg. Access Site Site: Right Femoral artery Sheath Size: 6 Fr Hemostasis Method: Suture Hemostasis Success: Successful Procedure Medications Start: 5:16 PM Stop: 5:16 PM Medication: Versed Amount: 1 mg Route: I.V. Start: 5:16 PM Stop: 5:16 PM Medication: Fentanyl Amount: 50 mcg Route: I.V. Start: 5:11 PM Stop: 5:11 PM Medication: Benadryl Amount: 15 mg Route: I.V. Start: 5:21 PM Stop: 5:21 PM Medication: Versed Amount: 1 mg Route: I.V. Start: 5:21 PM Stop: 5:21 PM Medication: Fentanyl Amount: 50 mcg Route: I.V. Start: 5:33 PM Stop: 5:33 PM Medication: 0.9% Saline Amount: 250 ml Route: I.V. bolus Start: 5:28 PM Stop: 5:28 PM Medication: Heparin Amount: 1500 units Route: I.V. Start: 5:37 PM Stop: 5:37 PM Medication: Nitrogylcerin Amount: 200 mcg Route: I.C. I, the attending physician, have reviewed and verified all procedure medications. Yes, all medications given per verbal order History/Risk Factors Hypertension: No Dyslipidemia: No Peripheral Arterial Disease (PAD): No Myocardial Infarction (PA): Yes Obesity: No Renal Disease: No Prior Interventions PCI: No CABG: No Valve Surgery: No Report Signatures Finalized by Dr Smith Del Toro MD [facility] on 04/24/2020 06:33 PM
--- NOTE | 2020-04-24 17:05 | W.PM.OPSUD ---
Surgery/Procedure H&P Update DATE OF PROCEDURE: April 24, 2020 DATE H&P PERFORMED: 04/08/20 H&P UPDATE INFORMATION: I have reviewed H&P completed within last 30 days, I have examined patient prior to procedure and No changes to prior documentation PREOP DIAGNOSIS: colon thickening PLANNED PROCEDURE: Operation Date: 04/24/20 16:30 Proposed Procedures p Left Cardiac Catheterization 46960 I25.110(Left) - Smith Del Toro MD PATIENT REASSESSED PRIOR TO SEDATION, WITH NO CHANGE NOTED: Yes PHYSICAL EXAM: alert, oriented x 3 and clear to auscultation bilaterally AIRWAY EVAL/ANESTHESIA PLAN: normal airway, see other exam findings, ASA III, Monitored Anesthesia, Local Anesthesia, Risks, benefits & alternatives of sedation and/or procedure discussed and Patient agrees to continue as planned
--- NOTE | 2020-04-24 18:16 | PC.NURSE ---
Patient received from labeler at 1800. Received bedside report from AMIE Canales and AMIE Burks. Patient AAOx4. S/P left heart cath with right femoral access. Sheath with pressure bag in place to site. No s/s of bleeding or hematoma formation observed. Dressing is c,d,i. Instructed patient on sheath removal and site care with restrictions. Patient verbalized understanding. Patient is talking on the phone with family presently. No distress observed.
--- NOTE | 2020-04-24 20:06 | PC.NURSE ---
Initiated sheath pull from right groin at 1927 per protocol. Hemostasis achieved immediately. Maintained pressure for 20min. VS monitored every 5min and remained WNL. Covered site with 2x2 and bio-occlusive. No s/s of bleeding or hematoma formation observed. Instructed patient on site care and restrictions. Patient verbalized complete understanding. Repositioned patient for comfort x2 assist. Pillows placed. Reassessed groin site, dressing remains c,d, i with no s/s of bleeding or hematoma formation after repositioning.
[2020-04-24] MEDS: metoprolol tartrate 25 mg Tablet 12.5 MG PO (20:54)
[2020-04-24] MEDS: sodium chlor 0.9% + KCl 20 mEq 20 MEQ/1,000 ML BAG 100 MEQ IV (20:54)
--- NOTE | 2020-04-24 20:58 | PC.NURSE ---
Patient resting with eyes closed. Opens eyes spontaneously. Fluids started as ordered. Other medications given. Patient denies pain or needs at this time. No distress observed. Right groin site remains c,d,i without s/s of bleeding or hematoma formation observed.
[2020-04-25] VITALS (8 sets, daily range): BP systolic 96–159; BP diastolic 60–91; PULSE 56–76; RESP 8–24; TEMP 36.3–36.8; O2SAT 98
[2020-04-25] MEDS: sodium chlor 0.9% + KCl 20 mEq 20 MEQ/1,000 ML BAG 100 MEQ IV (04:18)
--- NOTE | 2020-04-25 08:01 | PC.RESP ---
SMOKING CESSATION INFORMATION SENT TO PATIENT.
[2020-04-25] MEDS: clopidogrel 75 mg Tablet PO (08:22)
[2020-04-25] MEDS: lisinopril 20 mg Tablet PO (08:22)
[2020-04-25] MEDS: atorvastatin 40 mg Tablet 20 MG PO (08:23)
[2020-04-25] MEDS: aspirin 81 mg EC Tablet PO (08:24)
[2020-04-25] MEDS: metoprolol tartrate 25 mg Tablet 12.5 MG PO (08:24)
--- NOTE | 2020-04-25 12:55 | PC.NURSE ---
requested meds to bed at [facility]
--- NOTE | 2020-04-25 13:50 | PC.NURSE ---
Called Dr. Del Toro regarding pt's discharge meds Pt cannot afford the Entresto. Dr. Del Toro stated let her continue the Lisinopril 20 mg Daily and Discontinue metoprolol 12.5 and start Coreg.
--- NOTE | 2020-04-25 14:28 | PC.NURSE ---
Discharge to home self care Instructed pt to follow-up with [facility] at [facility] in4-7 days. Educated pt on new medication. Pt can't afford her Entresto and Dr. Del Toro stated she can continue her lisinopril. Informed pt on continuing his home Lisinopril. D/C her metoprolol and start carvedilol. Pt verbalizes understanding.
--- NOTE | 2020-04-25 14:32 | PC.NURSE ---
Discharg packet provided to pt. Informed pt on post angiogram home care instructions, chf stoplight as well. Pt weighed 190 lbs per request in standing weight scale.
== END 2020-04-25 14:20 | disposition home or self-care (01) ==
LOC: CSU 16:34 → OPOB 04-28 09:51
PROVIDERS: PCP Family Medicine; Visit Provider Internal Medicine Cardiovascular Disease
DX: I25.118 Atherosclerotic heart disease of native coronary artery with other forms of angina pectoris (principal); R53.83 Other fatigue; I25.5 Ischemic cardiomyopathy; Z79.82 Long term (current) use of aspirin; I25.2 Old myocardial infarction; F17.200 Nicotine dependence, unspecified, uncomplicated; F19.20 Other psychoactive substance dependence, uncomplicated; E78.5 Hyperlipidemia, unspecified; I10 Essential (primary) hypertension; Z79.02 Long term (current) use of antithrombotics/antiplatelets; Z91.14 Patient's other noncompliance with medication regimen
CPT/HCPCS: 12345; 80048; 85025; 85610; 86850; 86900; 90686; 93452; C1769; C1887; C1894; G0378; J1200; J1644; J2250; J3010; J3490; J7030; Q9967

== ENCOUNTER → 2020-05-02 13:57 | Outpatient (BNVA) | payer SELFPAY | PROVIDERS: PCP Family Medicine; Visit Provider Nurse Practitioner Family | DX: I25.118 Atherosclerotic heart disease of native coronary artery with other forms of angina pectoris (principal) | CPT/HCPCS: 80048 ==